=== PATIENT | female | born 1955 | race Caucasian/White ===

== ENCOUNTER 2019-04-12 10:05 | Inpatient (IN) | payer OTHER ==
[~2019-04-12] VITALS: Ht 160 cm; Wt 68.5 kg
[~2019-04-12 10:05] MED LIST: ASA5UEC PO; BACTRIM DS TAB1 EACH PO; CHOLESTEROL MED; EFFEXOR XR75 MG PO; FLONASE 0.05%50 MCG NASAL; GLIPIZIDE ER10 MG PO; IBUPROFEN 600600 M1 PO; LANTUS100 UNIT/M SUBQ; METFORMIN HCL1000 MG PO; NORCO 5-325 TA1 EACH PO; PRILOSEC 20 MG20 MG PO; TYLENOL325 MG PO; VESICARE10 M1 PO; VITAMIN D1000 UNI1 PO; XANAX1 MG PO; ZOCOR80 MG PO; ZOFRAN ODT4 MG PO
[2019-04-12 10:08] VITALS: BP 145/55
[2019-04-12 13:20] LABS: ABSOLUTE NEUTROPHILS 11.7 thou/uL (1.4-8.2); BASOPHILS 1.4 % (0.0-2.0); EOSINOPHILS 2.4 % (0.0-3.0); HEMATOCRIT 35.2 % (37.0-47.0); HEMOGLOBIN 10.9 gm/dL (12.0-15.0); MCH 21.8 pg (26.0-34.0); MCHC 31.1 g/dL (28.0-37.0); MCV 70.3 fL (80.0-100.0); MONOCYTES 4.5 % (1.0-8.0); PLATELET COUNT 233 thou/uL (150-400); POLYS 71.7 % (36.0-66.0); RBC 5.01 mil/uL (4.20-5.00); RDW 16.8 % (10.5-14.5); WBC 16.3 thou/uL (4.0-11.0)
[2019-04-12 13:28] LABS: CALCIUM 9.2 mg/dL (8.5-10.1); CREATININE 0.8 mg/dL (0.6-1.0); POTASSIUM 3.8 mmol/L (3.5-5.1)
[2019-04-12 13:33] LABS: URINE BILIRUBIN NEGATIVE (Negative); URINE BLOOD NEGATIVE (Negative); URINE CLARITY CLEAR; URINE COLOR YELLOW; URINE GLUCOSE-RANDOM* NEGATIVE (Negative); URINE KETONES NEGATIVE (Negative); URINE LEUKOCYTES-REFLEX NEGATIVE (Negative); URINE NITRITE-REFLEX NEGATIVE (Negative); URINE PROTEIN (DIPSTICK) 1+ (Negative)
[2019-04-12 13:34] LABS: ALBUMIN 3.5 g/dL (3.4-5.0); TOTAL BILIRUBIN 0.2 mg/dL (<0.1-1.0); TOTAL PROTEIN 7.5 g/dL (6.4-8.2)
[2019-04-12 13:48] LABS: SQUAMOUS 0-3 Few /LPF (0-3)
[2019-04-12 13:49] LABS: BACTERIA-REFLEX 1-9 Few /HPF (None Seen); CASTS None Seen /LPF (None Seen); CRYSTALS None Seen /LPF (None Seen); URINE RBC None Seen /HPF (0-2); URINE WBC-REFLEX None Seen /HPF (0-5)
[2019-04-12 13:50] LABS: ANISOCYTOSIS 1+; HYPOCHROMASIA SLIGHT; MICROCYTES 1+; POLYCHROMASIA OCCASIONAL; TOXIC GRANULATION SLIGHT
[2019-04-12 15:27] VITALS: BP 135/50
--- NOTE | 2019-04-12 15:40 | NUR ---
ATTEMPTED TO CALL REPORT NURSE NOT READY.
[2019-04-12 16:15] VITALS: BP 141/86
[2019-04-12 16:49] VITALS: BP 150/54
--- NOTE | 2019-04-12 19:46 | NUR ---
ASSUMED CARE OF PATIENT APPROX. 1640. PT A&OX4, VSS, NO SIGNS OF DISTRESS, PAINN AT 4, LEFT PELVIC. PT ABLE TO PIVOT TO BEDSIDE COMMODE X1 ASSIST WITH GAIT BELT. FALL BUNDLE IN PLACE, CALL LIGHT WITHIN REACH. PT AWARE TO CALL FOR HELP WHEN AMBULATING. SISTER IN TO VISIT. WILL CONTINUE TO MONITOR.
[2019-04-12 19:59] VITALS: BP 177/73
--- NOTE | 2019-04-12 20:13 | NUR ---
ASSUMED CARE, BROUGHT IN SCDS SLEEVE AND PT INFORMED THIS NURSE : I DON'T WANT THAT,", EVEN REFUSED LOVENOX WHEN OFFERED. PT VERBALIZED, MY ONLY DESIRE IS TO GO HOME. CALLED TO SHANTELL Lobo ABOUT TYLENOL AND BP OF 177/73. WILL MONITOR FOR NOW.
[2019-04-13 00:12] VITALS: BP 149/66
--- NOTE | 2019-04-13 03:36 | NUR ---
BED ALARM ON, UP WITH X1 ASSIST TO THE BEDSIDE COMMODE, PAIN TO LEFT HIP CONTROLLED BY TYLENOL. ON ROOM AIR, NO SOB NOTED. PT HOPING SHE CAN GO HOME TODAY, REFUSED FAST ACTING INSULIN. SAID SHE DOES NOT WANT TO MESH UP HER REGULAR MEDS WHEN SHE GOES HOME. ONLY TOOK THE [facility] TONIGHT. REFUSING SCDS AND LOVENOX, OLD HEALING WOUND TO LEG INTACT, VOIDING, NO BM PASSED, HOURLY ROUNDING, MONITORED.
[2019-04-13 04:57] VITALS: BP 182/75
[2019-04-13 06:06] LABS: HEMATOCRIT 33.6 % (37.0-47.0); HEMOGLOBIN 10.4 gm/dL (12.0-15.0); MCV 70.9 fL (80.0-100.0); RBC 4.74 mil/uL (4.20-5.00); RDW 16.2 % (10.5-14.5); WBC 11.5 thou/uL (4.0-11.0)
[2019-04-13 06:40] VITALS: BP 157/70
--- NOTE | 2019-04-13 06:41 | NUR ---
EARLIER BP WAS 182/75 AND WENT DOWN TO 157/70 WITH TYLENOL, NO HYDRALAZINE WAS GIVEN. CURRENTLY SITTING AT EDGE OF BED DRINKING COFFEE.
[2019-04-13 07:21] VITALS: BP 168/63
--- NOTE | 2019-04-13 07:38 | NUR ---
cm tried to visit with pt x 1 this am, pt stated " i really need to call my insurance company, you will need to come back later"/juan. will cont following as needed for dc needs. parvez spoke with bedside nurse who unsure if pt has any home dme ie walker or cane.
--- NOTE | 2019-04-13 09:12 | NUR ---
ORDERS RECEIVED FOR EVAL AND TREAT. Pt HAD JUST COMPLETED O.T. EVAL AND WAS DISCHARGED FROM THEIR SERVICES. OBSERVED Pt STAND AND AMBULATE IN ROOM WITH ROLLER WALKER WITHOUT DIFFICULTY. Pt DECLINING FORMAL P.T. EVAL STATING SHE IS MOVING FINE. NO STAIRS AT HOME. Pt WILL NEED A ROLLER WALKER FOR HOME. DISCUSSED WITH NURSING. Pt APPEARS SAFE FOR HOME WHEN MEDICALLY CLEAR.
[2019-04-13] MEDS ORDERED: TRAMADOL 50 MG50 MG PO (10:03)
--- NOTE | 2019-04-13 10:24 | NUR ---
PT DISCHARGED HOME, PT A&OX4, VSS/NO SIGNS OF DISTRESS. PAIN LEVEL AT FOUR AND MANAGED WITH TYLENOL. PT ABLE TO BEAR WEIGHT AND HAS BEEN CLEARED WITH PHYSICAL THERAPY TO BE UP AD EYAL. SHE WILL NEED A WALKER WHILE AT HOME.
[2019-04-13 13:33] VITALS: BP 168/63
--- NOTE | 2019-04-13 13:56 | NUR ---
PT ADMITTED RELATED TO LEFT PELVIC FX. CM REVIEWED CHART AND SPOKE WITH CARE TEAM. CM MET WITH PT AT BEDSIDE THIS DAY. PT IS A&O X 4. CM ROLE INTRODUCED. PT INDICATED SHE LIVES IN A [facility] IN AM INDEPENDENT APARTMENT. PT INDICATED SHE HAS ELEVATOR ACCESS. PT INDICATED SHE HAD BEEN INDEPENENDET WITH [employer]IT AND [employer]. PT INDICATED NO DME OR HH HX. PT INDICATED SHE PLANS TO RETURN HOME ONCE MEDICALLY STABLE. CARE TEAM INDICATED THAT PT NEEDED [facility]WW FOR HOME USE UPON DC. CM ASKED LIAISON WITH [employer] AND THEY DON'T TAKE PT'S INSURANCE CM ASKED AND RECEIVED PT'S PERMISSION TO SEND REFERRAL TO [facility]. THEY ARE ABLE TO PROVIDE FWW FOR HOME USE. IT WAS DELIVERED. PT IS TO DISCHARGE HOME THIS AFTERNOON WITH FWW. NO OTHER CM INTERVENTION INDICATED. PT IS TO BE TRANSPORTED BY HER SISTER. CASE CLOSED.
== END 2019-04-13 15:00 | disposition home or self-care (01) | DRG 536 ==
LOC: ER 10:05 → 4W 13:57 → EROBS 13:57 → 4W 16:15 → ENTRNSPT 04-13 14:38 → EDTRNSPTSTS 04-13 14:39 → 4W 04-13 15:00
PROVIDERS: Physician Assistant; ADMIT Hospitalist
DX: S32.502A Unspecified fracture of left pubis, initial encounter for closed fracture (principal); E11.9 Type 2 diabetes mellitus without complications; I10 Essential (primary) hypertension; E86.0 Dehydration; D72.829 Elevated white blood cell count, unspecified; W01.0XXA Fall on same level from slipping, tripping and stumbling without subsequent striking against object, initial encounter; F17.210 Nicotine dependence, cigarettes, uncomplicated; E78.5 Hyperlipidemia, unspecified; F32.9 Major depressive disorder, single episode, unspecified; F41.9 Anxiety disorder, unspecified; Z79.2 Long term (current) use of antibiotics; Y93.89 Activity, other specified; Y92.89 Other specified places as the place of occurrence of the external cause; Y99.8 Other external cause status; Z79.01 Long term (current) use of anticoagulants; Z79.82 Long term (current) use of aspirin; Z79.4 Long term (current) use of insulin; Z79.899 Other long term (current) drug therapy
CPT/HCPCS: 10040